=== PATIENT | male | born 1985 | race Caucasian/White ===

== ENCOUNTER 2017-06-19 18:16 | Emergency (ER) | payer MEDICAID ==
[~2017-06-19] VITALS: Ht 180.3 cm; Wt 99.0 kg
[2017-06-19 18:18] VITALS: BP 134/82
[2017-06-19] MEDS ORDERED: ACETAMINOPHEN 500 MG TABLET PO ONE (19:00)
[2017-06-19] MEDS ORDERED: ACETAMINOPHEN 500 MG TABLET ONE (19:05)
[2017-06-19 19:16] LABS: RAPID INFLUENZA A Negative (Negative)
[2017-06-19 19:17] LABS: RAPID INFLUENZA B POSITIVE (Negative)
== END 2017-06-19 20:07 | disposition home or self-care (01) ==
LOC: ED 20:00
DX: J11.1 Influenza due to unidentified influenza virus with other respiratory manifestations (principal); F17.200 Nicotine dependence, unspecified, uncomplicated; J06.9 Acute upper respiratory infection, unspecified
CPT/HCPCS: 71046; 87081; 87400; 87880; 99285